=== PATIENT | male | born 1950 | race Caucasian/White ===

== ENCOUNTER 2024-07-15 10:13 | Emergency (ER) | payer MEDICARE, OTHER ==
[~2024-07-15] VITALS: Ht 177.8 cm; Wt 99.8 kg
[~2024-07-15 10:13] MED LIST: ASPIRIN CHEW81 MG PO; B12 ACTIVE1000 MCG PO; CARBINOXAMINE MA4 MG PO; CLARITIN10 MG PO; CO Q-10400 MG PO; LASIX20 MG PO; LEVOTHYROXINE150 MC1 PO; METOPROLOL SUCC25 MG PO; NAPROXEN250 MG PO; NIACIN500 M2 PO; NIASPAN500 MG PO; OMEPRAZOLE20 MG; PLAVIX75 MG PO; VYTORIN 10-401 EACH PO; prosta genix PO; tumeric PO; zinc PO
[2024-07-15 10:55] VITALS: TEMP 97.1
[2024-07-15 11:29] LABS: BASOPHILS # (AUTO) 0.1 (0.0-0.1); BASOPHILS % 0.7 % (0.0-1.0); EOSINOPHILS # (AUTO) 0.1 (0.0-0.4); EOSINOPHILS % 1.2 % (0.0-6.0); HEMATOCRIT 34.9 % (38.2-49.6); HEMOGLOBIN 10.5 g/dL (14.0-18.0); LYMPHOCYTES # (AUTO) 1.1 (1.0-3.2); LYMPHOCYTES % 15.9 % (18.0-39.1); MEAN CORPUSCULAR HEMOGLOBIN 31.9 pg (28-32); MEAN CORPUSCULAR HGB CONC 30.1 g/dL (31-35); MEAN CORPUSCULAR VOLUME 106.1 fL (81-99); MONOCYTES # (AUTO) 0.5 (0.2-0.8); MONOCYTES % 7.8 % (4.4-11.3); NEUTROPHILS % 73.7 % (38.7-80.0); PLATELET COUNT 262 x10e3/uL (140-360); RED BLOOD COUNT 3.29 x10e6/uL (4.3-5.7); RED CELL DISTRIBUTION WIDTH 15.3 % (11.7-14.4)
[2024-07-15 11:57] LABS: ALBUMIN 3.9 g/dL (3.5-5.0); ALBUMIN/GLOBULIN RATIO 1.4 (0.8-2.0); ANION GAP 17.1 mmol/L (8-16); BILIRUBIN,TOTAL 0.5 mg/dL (0.2-1.2); CALCIUM 9.2 mg/dL (8.4-10.2); CREATININE, SERUM 1.4 mg/dL (0.72-1.25); POTASSIUM 4.1 mmol/L (3.5-5.1); TOTAL PROTEIN 6.6 g/dL (6.5-8.1)
[2024-07-15] MEDS ORDERED: SODIUM CHLORIDE 0.9% 1000ML 1,000 ML ONE (13:25)
[2024-07-15] MEDS: SODIUM CHLORIDE 0.9% 1000ML 1,000 ML IV ONE (14:13)
[2024-07-15 14:14] VITALS: PULSE 80; RESP 16
[2024-07-15] MEDS ORDERED: CARAFATE1 GM PO (14:26)
[2024-07-15 15:12] VITALS: BP 150/87; PULSE 78; RESP 18; O2SAT 100
== END 2024-07-15 15:10 | disposition home or self-care (01) ==
LOC: ER 10:51
DX: R10.11 Right upper quadrant pain (principal); D64.9 Anemia, unspecified; N17.9 Acute kidney failure, unspecified
CPT/HCPCS: 36415; 80053; 83690; 85025; 99283; J7030